=== PATIENT | female | born 1965 | race Caucasian/White ===

== ENCOUNTER → 2018-12-09 | Outpatient (CLI) | payer BC ==
[~2018-12-09] MED LIST: GLUCOPHAGE1000 MG PO; MULTIVITAMINS PO
== END ==
LOC: RAD 01:27
DX: Z12.31 Encounter for screening mammogram for malignant neoplasm of breast (principal)

== ENCOUNTER 2019-01-12 05:32 | Day surgery (SDC) | payer BC ==
--- NOTE | 2019-01-07 17:31 | H ---
[facility] [place] [address] HISTORY AND PHYSICAL Name: AL TILLMAN Room #: PRE [facility] M.R.#: [id number] Admission: Attend Phys: Abimael Schwartz, Discharge: Date of : 65 Report #: [id number] THIS REPORT FOR: //name// CC: Abimael Betancourt DATE OF SERVICE: 01/12/2019 DATE OF SCHEDULED SURGERY: 01/12/2019 REASON FOR SURGERY: Postmenopausal bleeding. HISTORY OF PRESENT ILLNESS: This is a 53-year-old who had presented with an onset of postmenopausal bleeding. She had a normal Pap smear in 10/2018. She has had a prior history of abnormal Pap smears. She did have a previous hysteroscopy and D and C in 08/2013 for abnormal bleeding, and her final pathology was benign. She did have a pelvic ultrasound on 11/11/2018. Her uterus measured 6.4 cm in length. The endometrium measured 7.7 mm. Ovaries were unremarkable. She indicated that she had not had a normal menstrual cycle since 06/2016 and she has had several recent episodes of postmenopausal bleeding. Because of her postmenopausal bleeding and endometrium measuring 7.7 mm, we did discuss endometrial evaluation. After discussing all options, she has elected to proceed with outpatient hysteroscopy and D and C. The procedure, risks, recovery and alternative options have been discussed with the patient. She has never been . She did have a previous hysteroscopy, D and C and an appendectomy. SOCIAL HISTORY: She is and employed and has never smoked. FAMILY HISTORY: Positive for diabetes, breast cancer, heart disease, and hypertension. ALLERGIES: She states allergies to PENICILLIN. CURRENT MEDICATIONS: Include lisinopril 10 mg daily as well as [id number] multivitamin, B12. REVIEW OF SYSTEMS: She denies any fever or chills. No nausea or vomiting, no diarrhea, no dysuria. No chest pain or shortness of breath. It is positive for the episodes of postmenopausal bleeding. PHYSICAL EXAMINATION: LUNGS: Clear. HEART: She had a regular rate and rhythm. NECK: Revealed no thyroid nodules. No supraclavicular adenopathy. BREASTS: Her breasts were normal bilaterally with no masses or adenopathy. [facility] [address] [place] [address] HISTORY AND PHYSICAL Name: AL TILLMAN Room #: [facility].#: [id number] Admission: Attend Phys: Abimael Schwartz, Discharge: Date of : 65 Report #: [id number] ABDOMEN: Soft, nontender. No masses or rebound. PELVIC EXAM: No apparent vulvar or vaginal lesions. Her recent Pap smear was normal. IMPRESSION AND PLAN: Postmenopausal bleeding with some endometrial thickening on pelvic ultrasound. At this time, she is to undergo evaluation with a hysteroscopy and D and C. Given the procedure, risks and recovery have been discussed with the patient. <ELECTRONICALLY SIGNED> By: Abimael Schwartz MD 01/07/19 1731 1534 1720 Abimael Schwartz MD /samm
[~2019-01-12] VITALS: Ht 172.7 cm; Wt 103.0 kg
[~2019-01-12 05:32] MED LIST changes: +LISINOPRIL10 MG PO; +MAGOX 400400 MG PO; +SYNTHROID112 MC1 PO
[2019-01-12 06:34] LABS: HEMATOCRIT 44.1 % (37.0-47.0); HEMOGLOBIN 15.1 gm/dL (12.0-15.0)
[2019-01-12 09:43] VITALS: BP 138/77
--- NOTE | 2019-01-12 12:36 | H ---
[facility] [place] [address] HISTORY AND PHYSICAL Name: AL TILLMAN Room #: 150-2 [facility]#: [id number] Admission: 01/12/19 Attend Phys: Abimael Schwartz, Discharge: Date of : 65 Report #: [id number] THIS REPORT FOR: //name// CC: Abimael Betancourt DATE OF SERVICE: 01/12/2019 PREOPERATIVE DIAGNOSIS: Postmenopausal bleeding with endometrial thickening on ultrasound. POSTOPERATIVE DIAGNOSIS: Postmenopausal bleeding with endometrial thickening on ultrasound with final pathology pending. NAME OF OPERATION: Hysteroscopy, D and C. SURGEON: Dr. Abimael Schwartz. ANESTHESIA: General. COMPLICATIONS: None. BLOOD LOSS: Approximately 5 mL. DESCRIPTION OF OPERATION: The patient was taken to the operating room, given adequate anesthesia. She was placed in the stirrups. She was prepped. Her bladder was drained and she was draped. A weighted speculum placed in the posterior vagina and a Alicia was used anteriorly. She did have a mild cystocele. The cervix was visualized and grasped with an Allis clamp. Initially, an endocervical curettage was performed. The cervix gently dilated and sounded to 8 cm. The cervical os was further dilated and a diagnostic hysteroscope was introduced. The tubal ostia appeared normal. There was no evidence of any polyps or masses. The hysteroscope was removed and endometrial curettings were performed. All tissue was sent to pathology. There were no complications. The Allis clamp was removed. There was just some slight spotting from the area of the Allis clamp and was treated with silver nitrate. There was hemostasis obtained. At this point, the weighted speculum was removed. There were no complications. Sponge, needle and instrument count were correct. There were no complications. She was placed back in the supine position and taken to the recovery room in stable condition. <ELECTRONICALLY SIGNED> By: Abimael Schwartz MD 01/12/19 1236 0823 0854 Abimael Schwartz MD /nt
--- NOTE | 2019-01-12 13:20 | EKG ---
[address] [address] ELECTROCARDIOGRAM REPORT Name: AL TILLMAN Room #: 150-2 [facility]#: [id number] Admission: 01/12/19 Attend Phys: Abimael Schwartz, Discharge: Date of : 65 Report #: [id number] THIS REPORT FOR: //name// [facility] Test Date: 2019-01-12 Test Time: 06:18:12 Pat Name: AL TILLMAN Department: Room: [facility] Gender: F Display Coordinator: PEACE : 1965 Requested By: Abimael Schwartz Order Number: [id number] MD: Roger Salinas Measurements Intervals [place] Rate: 72 P: 33 CO: 162 QRS: 6 QRSD: 94 T: 17 QT: 411 QTc: 450 Interpretive Statements Sinus rhythm No significant abnormality No previous ECG available for comparison Electronically Signed On 01-12-2019 13:20:31 CDT by Roger Salinas [email or web address] <ELECTRONICALLY SIGNED> By: Roger Salinas MD, [facility] 01/12/19 1320 0618 7 Roger Salinas MD, FACC /EPI
--- NOTE | 2019-01-13 15:08 | PATH ---
[facility] [address] [place] [address] PATHOLOGY RPT PROCEDURE Name: LAYNEAL Morales Room #: DEP [facility] M.R.#: [id number] Admission: 01/12/19 Date of : 65 Discharge: 01/12/19 Report #: [id number] Path Case #: [id number] [facility] Accession Number: [id number] . 01 Material submitted: . PART A: endocervix - ENDOCERVICAL CURETTINGS PART B: endometrium - ENDOMETRIAL CURETTINGS . 01 Clinical history: . PMB . 02 Diagnosis: A. Endocervix, curettage: - Fragments of endocervical mucosa with mild chronic inflammation and squamous metaplasia. . B. Endometrium, curettage: - Mucus, red blood cells, and scant fragments of benign endometrium with proliferative features. - Scant fragments of unremarkable endocervical mucosa. (LAWRENCE:aidan; 01/13/2019) QTP/01/13/2019 . 02 Electronically signed: . Jovani Green MD, Pathologist NPI- [id number] . 01 Gross description: . A. Received in formalin labeled "Al Tillman" is hemorrhagic mucoid material measuring 2.1 x 1.8 x 0.4 cm which is entirely submitted in A1. . B. Received in formalin labeled "Layne, [place], endometrial curettings" is soft, mucoid, and hemorrhagic [place]la-brown tissue measuring 2.8 x 2.0 x 0.4 cm which is entirely submitted in B1. (SDY; 01/12/2019) SYU/SYU . 02 Pathologist provided ICD-10: N72 . 02 CPT . 801488, [id number] Specimen Comment: A courtesy copy of this report has been sent to Specimen Comment: [phone], . Specimen Comment: Report sent to / DR ADAMS Performed at: [address] [place] [address] PATHOLOGY RPT PROCEDURE Name: AL TILLMAN Room #: DEP [facility]..#: [id number] Admission: 01/12/19 Date of : 65 Discharge: 01/12/19 Report #: [id number] Path Case #: [id number] [address] [facility] [address], [place] [id number] MD Sivakumar Gomez MD Phone: [phone] Performed at: [address] [id number] MD Alejandra Spann MD Phone: [phone]
== END 2019-01-12 09:20 | disposition home or self-care (01) ==
LOC: OR 05:32 → TBA 06:04 → OR 06:56
PROVIDERS: Obstetrics & Gynecology
DX: N72 Inflammatory disease of cervix uteri (principal); N95.0 Postmenopausal bleeding; I10 Essential (primary) hypertension; E03.9 Hypothyroidism, unspecified; Z90.49 Acquired absence of other specified parts of digestive tract; Z98.890 Other specified postprocedural states; Z79.899 Other long term (current) drug therapy; Z88.0 Allergy status to penicillin; Z82.49 Family history of ischemic heart disease and other diseases of the circulatory system; Z83.3 Family history of diabetes mellitus; Z80.3 Family history of malignant neoplasm of breast
CPT/HCPCS: 50010; 50101; 54172; 54173; 70005